=== PATIENT | male | born 1965 | race Caucasian/White ===

== ENCOUNTER → 2021-09-05 | Day surgery (SDC) | payer OTHER ==
[~2021-09-05] VITALS: Ht 175.3 cm; Wt 85.7 kg
[~2021-09-05] MED LIST: PRILOSEC OTC20 MG PO
[2021-09-05 07:35] VITALS: BP 121/70
[2021-09-05 09:15] VITALS: BP 121/70
== END | disposition home or self-care (01) ==
LOC: OR 05:56
PROVIDERS: ATTEND Orthopaedic Surgery
DX: S83.231A Complex tear of medial meniscus, current injury, right knee, initial encounter (principal); M94.261 Chondromalacia, right knee; M25.561 Pain in right knee; K21.9 Gastro-esophageal reflux disease without esophagitis; Z98.890 Other specified postprocedural states; Z79.899 Other long term (current) drug therapy; Z20.822 Contact with and (suspected) exposure to COVID-19; Z87.891 Personal history of nicotine dependence; X58.XXXA Exposure to other specified factors, initial encounter; Y93.89 Activity, other specified; Y92.89 Other specified places as the place of occurrence of the external cause; Y99.8 Other external cause status
CPT/HCPCS: 50010; 50101; 50405; 56526; 57103; 57180; 58577; 58589; 62110; 62900; 70005